=== PATIENT | male | born 1970 | race Caucasian/White ===

== ENCOUNTER → 2020-02-18 | Outpatient (CLI) | payer BC | END | disposition home or self-care (01) | LOC: US 14:28 | DX: I10 Essential (primary) hypertension (principal) ==

== ENCOUNTER → 2020-03-03 | Outpatient (CLI) | payer BC | END | disposition home or self-care (01) | LOC: CT 07:56 | DX: K11.8 Other diseases of salivary glands (principal); R22.1 Localized swelling, mass and lump, neck ==

== ENCOUNTER 2023-08-23 22:44 | Emergency (ER) | payer BC ==
[2023-08-24] MEDS ORDERED: CEPHALEXIN500 M1 PO (03:09)
== END 2023-08-24 03:38 | disposition home or self-care (01) ==
LOC: ED 22:44
DX: S82.832A Other fracture of upper and lower end of left fibula, initial encounter for closed fracture (principal); S90.01XA Contusion of right ankle, initial encounter; Z88.5 Allergy status to narcotic agent; X50.1XXA Overexertion from prolonged static or awkward postures, initial encounter; Y93.89 Activity, other specified; Y92.89 Other specified places as the place of occurrence of the external cause; Y99.8 Other external cause status